=== PATIENT | female | born 1960 | race Caucasian/White ===

== ENCOUNTER 2019-12-05 15:15 | Emergency (ER) | payer BC, OTHER ==
[~2019-12-05] VITALS: Ht 162.5 cm; Wt 55.8 kg
--- NOTE | 2019-12-05 15:35 | ED Lower Extremity ---
General Chief Complaint: Lower Extremity Stated Complaint: LT LEG PAIN History of Present Illness Date Seen by Provider: Dec 05, 2019 Time Seen by Provider: 15:29 Initial Comments 59-year-old female presents with pain in the back of her left leg for the past couple days. Denies injury or trauma to this area, denies history of blood clot. Pain is worse with certain movements and tender to touch and is causing her some discomfort with walking or squatting. Denies any swelling in this area or if her lower extremity. Denies any skin changes or bruising or change in color. Allergies and Home Medications Allergies Coded Allergies: No Allergy Information Available (Unverified , 12/05/19) Patient Home Medication List Home Medication List Reviewed: Yes Review of Systems Constitutional: No chills, No diaphoresis, No dizziness, No fever, No malaise, No weakness Respiratory: No cough, No short of breath Cardiovascular: No chest pain, No edema, No palpitations, No syncope Musculoskeletal: No back pain, No joint pain; other (pain back of left knee/ leg) Skin: see HPI; No change in color, No lesions, No lumps, No rash Past Rpstgfq-Wzjbpk-Wjllnt Hx Past Med/Social Hx: Reviewed Nursing Past Med/Soc Hx Patient Social History Recent Foreign Travel: No Contact w/Someone Who Travel: No Physical Exam Vital Signs Vital Signs - First Documented 12/05/19 15:20 Temp 36.1 Pulse 74 Resp 16 B/P (MAP) 148/86 (106) Pulse Ox 99 O2 Delivery Room Air Capillary Refill : Height, Weight, BMI Height: '" Weight: lbs. oz. kg; BMI Method: General Appearance: WD/WN, no apparent distress Legs: left leg normal inspection, left leg normal range of motion, left leg no evidence of injury, left leg pain, left leg soft tissue tenderness Knees: left knee non-tender, left knee normal inspection, left knee normal range of motion, left knee no evidence of injury Neurologic/Tendon: normal sensation, normal motor functions, normal tendon functions Neurologic/Psychiatric: no motor/sensory deficits, alert, normal mood/affect Skin: normal color, warm/dry tenderness post and lateral proximal leg, soft tissue. No edema or bony tenderness. NO knee pain or effusion. Full ROM. No calf tenderness. NVI Progress/Results/Core Measures Results/Orders Lab Results Laboratory Tests Test 12/05/19 15:20 Range/Units D-Dimer 0.68 H 0.00-0.49 UG/ML My Orders Orders - FRANCOISE FREEDMAN DO [employer] (12/05/19 15:30) Vital Signs/I&O 12/05/19 15:20 Temp 36.1 Pulse 74 Resp 16 B/P (MAP) 148/86 (106) Pulse Ox 99 O2 Delivery Room Air Departure Impression Primary Impression: Leg pain, left Disposition: 01 HOME, SELF-CARE Condition: Stable Departure-Patient Inst. Decision time for Depature: 16:31 Referrals: NO,LOCAL PHYSICIAN (PCP/Family) Primary Care Physician Patient Instructions: Muscle and Bone Pain (DC) Add. Discharge Instructions: You will get a phone call from "scheduling" to get an ultrasound of your left leg tomorrow. The results will go to your PCP, Lynn Hernandez.....you should notify her to look for the results so she can treat you according to the results of the ultrasound. Call us here in the ER for any questions or problems with getting this set-up. All discharge instructions reviewed with patient and/or family. Voiced understanding. FRANCOISE FREEDMAN DO Dec 05, 2019 15:35
[2019-12-05 16:48] VITALS: BP 128/72
== END 2019-12-05 16:44 | disposition home or self-care (01) ==
LOC: EDUNIT# 15:15 → ER FS 15:16
DX: M79.605 Pain in left leg (principal)
CPT/HCPCS: 36415; 85379; 99283